=== PATIENT | male | born 1950 | race Caucasian/White ===

== ENCOUNTER 2018-07-23 03:33 | Inpatient (IN) | payer OTHER ==
[~2018-07-23] VITALS: Ht 185.4 cm; Wt 80.3 kg
[~2018-07-23 03:33] MED LIST: ATORVASTATIN CA40 M1 PO; CARVEDILOL12.5 M1 PO; CHLORTHALIDONE25 M1 PO; PANTOPRAZOLE SO40 M1 PO
--- NOTE | 2018-07-23 11:48 | Admission Core Measures ---
Acute Coronary Syndrome (CM) ACS Core Measures Acute Coronary Syndrome Diagnosis No Congestive Heart Failure (NEW) CHF Core Measures Congestive Heart Failure Diagnosis No Cerebrovascular Accident CVA Core Measures CVA/TIA Diagnosis No Venous Thromboembolism VTE Core Noar (View Protocol) VTE Risk Factors Surgery No Mechanical VTE Prophylaxis d/t N/A MechProphylax Ordered No VTE Pharm Prophylaxis d/t NA PharmProphylax ordered Problem List As ranked by this Provider includes Assessment & Plan 1. Colon adenoma HOME MEDS Home Med List Atorvastatin Calcium 40 MG TABLET 1 TAB PO DAILY CHOLESTEROL (Reported) Carvedilol 12.5 MG TABLET 1 TAB PO BID HTN (Reported) Chlorthalidone 25 MG TABLET 1 TAB PO DAILY HTN (Reported) Pantoprazole Sodium 40 MG TABLET.DR 1 TAB PO DAILY GERD (Reported)
--- NOTE | 2018-07-23 11:51 | Patient Discharge Instructions ---
Discharge Instructions General Discharge Information You were seen/treated for: Colon adenoma, ascending colon You had these procedures: Right colectomy on 07/23/18 Watch for these problems: Increased pain, distention, nausea, vomiting, redness, swelling or drainage from incisions Do not soak the wound: Yes No bath, but you may shower: Yes Other wound care: Keep incisions clean and dry Ok to remove dressing in 2 days Change dressing daily as needed Diet Continue normal diet: No Recommended Diet: Low Residue Activity Full Activity/No Limits: No Activity Self Limited: Yes Pounds, do NOT lift more than: 10 Other activity limits: No heavy lifting or strenous activity Acute Coronary Syndrome Inclusion Criteria At DC or during hospital stay patient has or had the following: ACS DIAGNOSIS No Discharge Core Measures Meds if any: Prescribed or Continued at Discharge Meds if any: NOT Prescribed or Continued at Discharge Congestive Heart Failure Inclusion Criteria At DC or during hospital stay patient has or had the following: CHF DIAGNOSIS No Discharge Core Measures Meds if any: Prescribed or Continued at Discharge Meds if any: NOT Prescribed or Continued at Discharge Cerebrovascular accident Inclusion Criteria At DC or during hospital stay patient has or had the following: CVA/TIA Diagnosis No Discharge Core Measures Meds if any: Prescribed or Continued at Discharge Meds if any: NOT Prescribed or Continued at Discharge Venous thromboembolism Inclusion Criteria VTE Diagnosis No VTE Type NONE VTE Confirmed by (Test) NONE Discharge Core Measures - Per Current guidelines, there needs to be overlap - treatment for the first 5 days of Warfarin therapy. - If discharged on Warfarin prior to 5 days of - overlap therapy, the patient will need to be - assessed for post discharge needs including - *Post discharge parental anticoagulation - *Warfarin and/or parental anticoagulation education - *Follow up date to check INR post discharge At least 5 days overlap therapy as Inpatient No Meds if any: Prescribed or Continued at Discharge Note: Overlap Therapy is Warfarin and Anticoagulant Meds if any: NOT Prescribed or Continued at Discharge
--- NOTE | 2018-07-23 12:55 | Surg Short-stay <48hrs Dis Sum ---
Visit Information Visit Dates Admission Date: 07/23/18 Discharge Date: 07/24/18 Surgical Short Stay DC Summary Admission Diagnosis: Colon adenoma, ascending colon Final Diagnosis: DUSTIN s/p robotic right colectomy Procedure(s): Right colectomy Summary/Significant Findings: Patient presented for elective robotic right colectomy for an ascending colon adenoma on 07/23/18. He tolerated procedure well without complication. ERAS was started preop and continued postop. He was started on clears and advanced as tolerated with return of bowel function. Jewell was removed postop day 1. On the day of discharge, he was tolerating a regular diet, voiding spontaneously and pain was well managed with oral analgesics. Patient was stable for discharge. Condition at Discharge: Stable Discharge Disposition: home or self care Discharge instructions provided to patient/family: Yes Post discharge follow-up plan: 1-[address] Boudreaux
--- NOTE | 2018-07-23 13:25 | Operative Report ---
Operative/Inv Procedure Report Surgery Date: 07/23/18 Name of Procedure: Robotic right colectomy Pre-Operative Diagnosis: Colon adenoma not amenable to endoscopic removal Post-Operative Diagnosis: Same Estimated Blood Loss: 50ml to 100ml Surgeon/Scheduling Assistant: Howard Boudreaux Jr., DO Anesthesia: general endotracheal tube, block Monitors: Per routine IV Fluids: Refer to anesthesia record Urine Output: Refer to anesthesia record Drains: None Specimens: Right Colon Complications: None Condition: Good Operative Indication: There is a 67-year-old gentleman referred to me for a polyp in his ascending colon which was not amenable to endoscopic removal. Polyps was biopsied and proved to be an adenoma. Operative/Procedure Note Note: On the day before his procedure the patient the bowel prep at home including oral laxatives and oral antibiotics. He presented to [facility] where he was given the usual preoperative medications in the holding area. He was taken to the operating room, he received IV antibiotics, and he was placed in the supine position on the operating room table. He underwent induction of general anesthesia and placement of endotracheal tube. A Jewell catheter was placed. Next bilateral tap blocks were performed by the anesthesia department. At this point the abdomen was prepped and draped in usual fashion and I entered the abdominal cavity using a Veress needle technique. The Veress needle was inserted in the midclavicular line subcostal on the left. The abdomen was insufflated to 15 mmHg. Next the robotic ports were placed in usual fashion. After all the ports were placed a laparoscopic exploration was performed. The abdominal cavity appeared normal without any additional visible pathology. The robot was docked . I grasped the colon at the cecum held anterior causing tenting in the mesocolon. I could see the ileocolic vessel stenting the mesocolon and I incised the mesenteric at the inferior edge of these vessels. Through this incision I entered the avascular retroperitoneal space. I developed the space until I could see the duodenum which I gently mobilized medially. I continue to mobilize towards the upper abdomen until I reached the lesser sac. I then continue to mobilize the medial to lateral fashion until I reached the lateral sidewall.. At this point ileocolic vessels were skeletonized and divided with the robotic vessel sealer at the level of the right lateral edge of the duodenum. The colon was pulled medially and the white line of Toldt was taken down and I continue to take down attachments until I took down most of the hepatic flexure. Transverse colon was pulled down and I took down part of the gastric colic ligament and completed taking down the splenic flexure. The tattoo was observed in the proximal third of the ascending colon. I cleared the mesentery around the terminal ileum and then divided the bowel with a white NATIVIDAD 45 mm robotic stapler. I chose my distal site of transection at about the level of the hepatic flexure and I used a robotic blue NATIVIDAD 45 mm stapler to divide the bowel. Specimen was placed in the right upper quadrant on the surface of the liver. The 2 transected portions of the bowel were aligned with 2-0 Vicryl sutures. I then prepared to make a side to side anastomosis. 2 enterotomies were created on the antimesenteric portion of each portion of the bowel. The NATIVIDAD blue stapler was then used to create the common enterotomy. One arm of the stapling device was placed in each limb of the bowel. Once the staple was optimally positioned the stapler was closed approximating the antimesenteric portions of the bowel. Staple was fired open and retrieved. I inspected the lumen which appeared hemostatic and pink and healthy. The common enterotomy was then closed in 2 layers. The inner layer was closed with a running 20V lock suture. The outer layer was closed with 2-0 Vicryl sent interrupted fashion. The sutures were placed in a Lembert fashion. At this point the abdominal cavity was inspected for bleeding there was a small amount of old blood in the right gutter which was irrigated and aspirated away. There was no signs of active bleeding. The end of the specimen was grasped with a locking grasper and the robot was undocked. The #1 most inferior port was converted into a 4 cm Pfannenstiel incision. A wound protector was placed through this incision I was able to extract the specimen without difficulty. The specimen was later opened on the back table and lesion was well within the specimen with good distal margin. At this point the Pfannenstiel incision was closed in layers. Peritoneum was closed with running 2-0 Vicryl, the fascia was closed with running 0 Maxon. The subcu was copiously irrigated. All the robotic ports were removed. The skin was closed with subcuticular 4-0 Monocryl and then skin glue. The patient tolerated procedure well. Patient was explained in the operating room. The patient was taken to the recovery area in good condition. At the end of this operation all needle sponges and instruments were accounted for. Findings: Benign-appearing polyp in ascending colon with adjacent tattoo [id number] anastomosis Discharge Disposition: Same Day Admissions CC: Lizzette BLACK,Nila
--- NOTE | 2018-07-23 13:48 | PN- Student ---
See Addendum Destini Estrella 07/23/18 1321: Subjective Subjective: 67 yo male w/ hx of HTN and HLD seen in PACU s/p robotic right colectomy for adenoma of ascending colon. Pt is sitting up in bed, alert and sipping ice water. Reports having post-op pain that is currently managable w/ dilaudid. No complaints otherwise. Voiding urine via catheter dark urine, flatus, but no BM. Denies SOB, chest pain , fever, nausea, dizziness or chills. Objective Objective: Gen: Older adult male NAD, AOx4 CV: RRR, no m/r/g Resp: Good air movement, vesicular b/l, no w/r/r Abd: Non-distended, hypoactive BS, appropriately tender, dressing on lower abd dry and clean, trocar incision sites dry, clean and intact. Ext: calves non-tender, +2 radial and dorsalis pedis pulses b/l Results Results: Current Medications Sig/Remi Start time Last Medication Dose Route Stop Time Status Admin Acetaminophen 0 .STK-MED ONE 07/23 642 DC PO Acetaminophen 1,000 MG ONCE 07/23 0000 NR PO 07/23 2359 Alvimopan 12 MG ONCE 07/23 NR PO 07/23 2359 Cefazolin Sodium 2,000 MG ONCE 07/23 NR IV 07/23 2359 Fentanyl Citrate 0 .STK-MED ONE 07/23 721 DC .ROUTE Gabapentin 0 .STK-MED ONE 07/23 643 DC PO Gabapentin 600 MG ONCE 07/23 0000 NR PO 07/23 2359 Heparin Sodium 0 .STK-MED ONE 07/23 0643 DC (Porcine) .ROUTE Heparin Sodium 5,000 UNIT ONCE 07/23 0000 NR (Porcine) SC 07/23 2359 Hydromorphone HCl 0 .STK-MED ONE 07/23 1326 DC .ROUTE Hydromorphone HCl 0 .STK-MED ONE 07/23 720 DC .ROUTE Metronidazole 500 MG ONCE 07/23 NR N/A 1 UNIT IV 07/23 2359 Midazolam HCl 0 .STK-MED ONE 07/23 721 DC .ROUTE Scopolamine HBr 0 .STK-MED ONE 07/23 0642 DC TOP Scopolamine HBr 1 PAT ONCE 07/23 0000 NR TOP 07/23 2359 Microbiology Date/Time Procedure - Status Source Growth 07/23 0800 Urine Culture - RECD URINE ROUT Assessment/Plan Assessment: 67 yo male w/ hx of HTN and HLD seen in PACU s/p robotic right colectomy for adenoma of ascending colon tolerating surgery well, stable. Plan: ERAS protocol - pain mgmt w/ acetaminophen, nausea ppx alvimopam and scopolamine , advance diet as tolerated Resume home med - atorvastin, carvedilol, chlorthalidone, protoprazole, percocet ? OOB and IS Dressing change POD 2 Catheter out POD 1 UA and cx pending F/u AM vitals, CBC, BMP DVT ppx - low-dose unfractionated hep D/c to home tomorrow if no overnight event, tolerating diet, flatus and BM F/u outpatient w/ Dr. Boudreaux in 1-2 weeks D/w surg ALISSA Carranza and Dillon Hawk 07/23/18 1630: Assessment/Plan Plan: Seen and evaluated. Agree with above. Patient reports pain controlled and sore throat from ET tube. Denies n/v, c/p, sob or passing flatus. On exam, afebrile, VSS, abdomen soft, nondistended, incisions and dressing c/d/i, absent bs, appropriately tender, napier with concentrated urine, alps in place. S/p robotic right colectomy due to ascending colon adenoma, recovering well. Clear liquids, advance as tolerated, IVF, ERAS, entereg, pain regimen prn, hsq, home meds on board, monitor i&os, am labs, encourage ambulation/IS, anticipate d/c in 1-2 days.
[2018-07-23 14:00] VITALS: BP 131/71
[2018-07-23 16:30] VITALS: BP 145/79
[2018-07-23 20:30] VITALS: BP 120/80
[2018-07-24] VITALS (7 sets, daily range): BP systolic 100–140; BP diastolic 67–85
--- NOTE | 2018-07-24 07:36 | PN- General Surgery ---
See Addendum Subjective Subjective: Patient reports postop pain with movement, improved with oxycodone. Reports having tramadol in past with no pain improvement. Tolerated 50% of clears last night, reports decreased appetite. Denies n/v, belching, passing flatus, ambulating. Objective Vital Signs and I&Os Vital Signs Date Time Temp Pulse Resp B/P B/P Pulse O2 O2 Flow FiO2 Mean Ox Delivery Rate 07/24 0200 98.1 59 20 140/81 100 07/24 0036 98.1 59 20 140/80 100 07/23 2111 120/80 07/23 2030 98.2 82 20 120/80 97 Room Air 07/23 1630 98.2 59 16 145/79 100 Room Air 07/23 1400 97.8 60 16 131/71 96 Room Air Intake & Output 07/24 0800 07/24 0000 07/23 1600 07/23 0807/23 0000 07/22 1600 Intake Total 840 390 Output Total 750 Balance 840 -360 Intake, IV 600 150 Intake, Oral 240 240 Output, Urine 750 Patient 177 lb Weight Weight Reported by Patient Measurement Method Physical Exam: Gen - resting comfortably in nad Cardiac - S1S2 noted Lungs - CTAB Abd - soft, nondistened, lap incisions healing well, suprapubic incision c/d/i, faint bs, appropraitely tender clara-incisionally Ext - no edema or calf pain,alps in place Current Medications: Current Medications Sig/Remi Start time Last Medication Dose Route Stop Time Status Admin Acetaminophen 1,000 MG Q8 07/23 1400 AC 07/24 PO 0528 Acetaminophen 1,000 MG ONCE 07/23 0000 DC PO 07/23 2359 Alvimopan 12 MG BID 07/23 2100 AC 07/23 PO 211 Alvimopan 12 MG ONCE 07/23 0000 DC PO 07/23 235 Atorvastatin Calcium 40 MG 1700 07/23 1700 AC 07/23 PO 1745 Bupivacaine Liposome 266 MG .STK-MED ONE 07/23 1545 DC INF 07/23 1546 Carvedilol 12.5 MG BID 07/23 2100 AC 07/23 PO 211 Cefazolin Sodium 2,000 MG ONCE 07/23 0000 DC IV 07/23 235 Chlorthalidone 25 MG DAILY 07/24 09 AC PO Dextrose/Sodium 1,000 ML .[id number] 07/23 1445 AC 07/23 Chloride IV 1745 Gabapentin 300 MG Q8 07/23 1400 AC 07/24 PO 0528 Gabapentin 600 MG ONCE 07/23 0000 DC PO 07/23 2359 Heparin Sodium 5,000 UNIT Q8 07/23 2200 AC 07/24 (Porcine) SC 0529 Heparin Sodium 5,000 UNIT ONCE 07/23 0000 DC (Porcine) SC 07/23 2359 Hydromorphone HCl 0 .STK-MED ONE 07/23 1407 DC .ROUTE Hydromorphone HCl 0 .STK-MED ONE 07/23 1326 DC .ROUTE Metronidazole 500 MG ONCE 07/23 0000 DC N/A 1 UNIT IV 07/23 235 Omeprazole 40 MG DAILY AC 07/24 0700 AC 07/24 PO 0528 Ondansetron HCl 4 MG Q6P PRN 07/23 1445 AC IV Oxycodone HCl 5 MG Q4-6 PRN PRN 07/23 1445 AC PO Oxycodone HCl 10 MG Q4-6 PRN PRN 07/23 1445 AC 07/23 PO 1611 Scopolamine HBr 1 PAT ONCE 07/23 0000 DC TOP 07/23 2359 Tramadol HCl 100 MG Q6P PRN 07/23 1445 AC PO Tramadol HCl 50 MG Q6P PRN 07/23 1200 AC PO Results Last 48 Hours of Labs: Laboratory Tests 07/24 0624 Chemistry Sodium Pending Potassium Pending Chloride Pending Carbon Dioxide Pending Anion Gap Pending BUN Pending Creatinine Pending BUN/Creatinine Ratio Pending Hematology CBC w Diff Pending WBC Pending RBC Pending Hgb Pending Hct Pending MCV Pending MCH Pending MCHC Pending RDW Pending Plt Count Pending MPV Pending Assessment/Plan Assessment/Plan 67 M POD 1 s/p robotic right colectomy due to ascending colon adenoma with expected postop pain Cont clears, d/c IVF Advance to fulls if tolerates clears for breakfast ERAS Pain meds prn Entereg bid Alps, hsq Home meds on board D/c napier F/u am labs Encourage IS and ambulation Will d/w Dr. Boudreaux Core Measures Venous Thromboembolism VTE Risk Factors Surgery No Mechanical VTE Prophylaxis d/t N/A MechProphylax Ordered No VTE Pharm Prophylaxis d/t NA PharmProphylax ordered
[2018-07-24 08:06] LABS: ABSOLUTE BASOPHIL COUNT 0 /CUMM (0.0-0.2); ABSOLUTE EOSINOPHIL COUNT 0.2 /CUMM (0.0-0.7); ABSOLUTE GRANULOCYTE CT 4.8 /CUMM (1.4-6.5); ABSOLUTE LYMPH COUNT 1.5 /CUMM (1.2-3.4); ABSOLUTE MONOCYTE COUNT 0.5 /CUMM (0.10-0.60); BASOPHIL % 0.5 % (0.0-2.0); EOSINOPHIL % 3.1 % (0-5); GRANULOCYTE % 68.4 % (42.2-75.2); HEMATOCRIT 41.2 % (42-52); MEAN CORPUSCULAR HGB 31.9 PG (27.0-31.0); PLATELET COUNT 170 /CUMM (130-400); RBC DISTRIBUTION WIDTH 13.5 % (11.5-14.5); RED BLOOD CELL CT 4.38 /CUMM (4.70-6.10)
[2018-07-25 06:51] VITALS: BP 159/77
--- NOTE | 2018-07-25 07:25 | PN- Student ---
Destini Estrella 07/25/18 0706: Subjective Subjective: 67 M POD 2 s/p robotic right colectomy seen at bedside, alert and conversant. Pt endorses pain at incision sites and pain in the shoulder, likely referred, that is managable with oxycodone. Pt has tolerated regular diet, last night had 2 pieces of toast and jello. Has been spontaneously voiding clear, yellow urine and passing flatus. No BM yet. Pt has beem ambulating, a few times in the evening and today as well. Pt has concern of breakthrough pain during night if he is d/c, also stated to RN that his house has 2 flights of stairs and does not feel ready for d/c, daughter in for [place] last night. Denies feeling constipated, nausea, vomitting, chest pain or SOB. Objective Objective: PE: Gen: well-appearing late-middle aged man, NAD, OAx4 CV: RRR, no m/r/g Resp: mild inspiratory wheeze b/l Abd: BS appreciated, mildly tender abd around incision sites, voluntary guarding , no rebound, pfannenstiel incision site dressed, clean, dry, and intact. Ext: +2 radial and dp pulses, no calve tenderness Results Results: Laboratory Tests 07/25 630 Chemistry Sodium Pending Potassium Pending Chloride Pending Carbon Dioxide Pending Anion Gap Pending BUN Pending Creatinine Pending BUN/Creatinine Ratio Pending Laboratory Tests 07/25/18 0630: Sodium Pending, Potassium Pending, Chloride Pending, Carbon Dioxide Pending, Anion Gap Pending, BUN Pending, Creatinine Pending, BUN/Creatinine Ratio Pending Vital Signs - last vitals taken after ambulating Date Time Temp Pulse Resp B/P B/P Pulse O2 O2 Flow FiO2 Mean Ox Delivery Rate 07/25 0651 98.5 74 20 159/77 96 Room Air 07/24 2251 98.4 69 20 129/85 98 Room Air 07/24 2202 66 129/85 07/24 1423 98.1 63 20 132/75 98 Room Air 07/24 1011 Room Air Room Air 07/24 0851 120/68 07/24 0843 120/68 07/24 0832 98.5 51 18 127/70 98 Room Air Intake & Output 07/25 0800 07/25 0000 07/24 1600 Intake Total 120 400 Output Total 1850 750 Balance -1730 -350 Intake, Oral 120 400 Output, Urine 1850 750 Laboratory Tests 07/25/18 0630: Sodium Pending, Potassium Pending, Chloride Pending, Carbon Dioxide Pending, Anion Gap Pending, BUN Pending, Creatinine Pending, BUN/Creatinine Ratio Pending 07/24/18 0624: Anion Gap 7, Estimated GFR > 60, BUN/Creatinine Ratio 17.1, CBC w Diff NO MAN DIFF REQ, RBC 4.38 L, MCV 94.0, MCH 31.9 H, MCHC 34.0, RDW 13.5, MPV 8.0, Gran % 68.4, Lymphocytes % 20.9, Monocytes % 7.1, Eosinophils % 3.1, Basophils % 0.5, Absolute Granulocytes 4.8, Absolute Lymphocytes 1.5, Absolute Monocytes 0.5, Absolute Eosinophils 0.2, Absolute Basophils 0 Microbiology 07/23 0800 URINE ROUT: Urine Culture - RES Assessment/Plan Assessment: 67 M w/ hx of HTN and HTL POD 2 s/p robotic right colectomy due to ascending colon adenoma w/ post-op pain but otherwise stable and recovering well Plan: Advance to low-residue diet for lunch as tolerated ERAS Pain meds prn Entereg bid Alps, hsq Home meds on board PT eval F/u am labs Encourage IS and ambulation Will d/w Dr. Janusz MAXWELL,Nino 07/25/18 0760: Resident Review Statement Resident Statement: examined this patient, amended to note Other Findings: Agree with above. Patient progressing well. Positive flatus, no bowel movement yet, he is ambulating well. Advanced to low residue lunch. Awaiting this morning's labs, potassium repleted yesterday. Possible discharge later today, likely tomorrow
--- NOTE | 2018-07-25 12:59 | PN- General Surgery ---
Surgical Brief Attending Note Brief Attending Note: Pt medicaly ready for d/c - tolerating diet , having BM , vitals and labs WNL Patient does not feel pain is adequately controlled patientmPt does not feel pain adequatly controlled Plan: D/c Entereg Start Valium 2g TID prn abdominal pain , adomnal wall spasm D/c home tomorrow AM
[2018-07-25 15:07] VITALS: BP 154/87
[2018-07-25 22:00] VITALS: BP 140/79
[2018-07-26 06:48] VITALS: BP 130/67
[2018-07-26] MEDS ORDERED: OXYCODONE HCL5 M1 PO ×3 (07:24→07:46)
[2018-07-26] MEDS ORDERED: DIAZEPAM2 M1 PO ×3 (07:24→07:46)
--- NOTE | 2018-07-26 07:30 | Surgical Discharge Summary ---
Visit Information Visit Dates Admission Date: 07/23/18 Discharge Date: 07/26/18 History of Present Illness Chief Complaint: abd pain Medical History Isolation History: Standard Surgical History Pertinent Surgical History: none Psychosocial History Where Do You Live? Home Who Do You Live With? Patient/Self Services at Home: None Review of Systems: As per HIP Hospital Course Course Attending Physician: Howard Boudreaux Jr., DO Primary Care Physician: Barrett BLACK,[facility] Course: Patient presented for elective robotic right colectomy for an ascending colon adenoma on 07/23/18. He tolerated procedure well without complication. ERAS was started preop and continued postop. He was started on clears and advanced as tolerated with return of bowel function. Jewell was removed postop day 1. On the day of discharge, he was tolerating a regular diet, voiding spontaneously and pain was well managed with oral analgesics. Patient was stable for discharge. Allergies: Coded Allergies: No Known Allergies (07/20/18) Disposition Summary Disposition Principal Diagnosis: Colon ca Additional Diagnosis: HTN, HLD, GERD Discharge Disposition: home or self care Discharge Instructions General Discharge Information Code Status: Full Code Patient's Diet: Low residue Patient's Activity: As tolerated, use fall precautions, avoid strenuous activity Follow-Up Instructions/Appts: Follow up with Dr. Boudreaux in 1-2 weeks Medications at Discharge Discharge Medications: Continue taking these medications: Chlorthalidone (Chlorthalidone) 25 MG TABLET 1 Tablet ORAL DAILY Carvedilol (Carvedilol) 12.5 MG TABLET 1 Tablet ORAL TWICE DAILY Pantoprazole Sodium (Pantoprazole Sodium) 40 MG TABLET.DR 1 Tablet ORAL DAILY Atorvastatin Calcium (Atorvastatin Calcium) 40 MG TABLET 1 Tablet ORAL DAILY Start taking the following new medications: Diazepam (Diazepam) 2 MG TABLET 2 Milligram ORAL THREE TIMES DAILY as needed for SPASMS Qty = 15 No Refills Oxycodone HCl (Oxycodone HCl) 5 MG TABLET 5 Milligram ORAL EVERY 4-6 HOURS NEEDED as needed for BREAKTHROUGH PAIN 4 -6 Qty = 15 No Refills
== END 2018-07-26 13:15 | DRG 331 ==
LOC: SDA 03:33 → 2NB 03:33 → ENRESERV 12:47 → ENTRNSPT 13:43 → EDTRNSPT 14:17 → EDTRNSPTSTS 14:17 → CMPTRNSPT 14:24 → 2NB 14:49 → ENPENDDIS 07-26 10:56 → 2NB 07-26 13:15
PROVIDERS: Physician Assistant Surgical
PROC: 3E0T3BZ Introduction of Anesthetic Agent into Peripheral Nerves and Plexi, Percutaneous Approach (ICD-10-PCS; principal; 2018-07-23)
PROC: 0DTK4ZZ Resection of Ascending Colon, Percutaneous Endoscopic Approach (ICD-10-PCS; principal; 2018-07-23)
PROC: 8E0W4CZ Robotic Assisted Procedure of Trunk Region, Percutaneous Endoscopic Approach (ICD-10-PCS; principal; 2018-07-23)
DX: D12.2 Benign neoplasm of ascending colon (principal); I10 Essential (primary) hypertension; E78.5 Hyperlipidemia, unspecified; K21.9 Gastro-esophageal reflux disease without esophagitis; G89.29 Other chronic pain; M19.90 Unspecified osteoarthritis, unspecified site
CPT/HCPCS: 2NBP; 36415; 36592; 82436; 87086; C9290; J0690; J1644; J2405; J7042